=== PATIENT | female | born 2000 | race Caucasian/White ===

== ENCOUNTER 2018-02-13 15:04 | Outpatient (CLI) | payer OTHER ==
--- NOTE | 2018-02-14 03:47 | Diagnostic Imaging Report ---
RUCHI PALOMINO [facility] [id number] [facility]ly [facility] [address] [address] Report Submission Date: Feb 13, 2018 3:35:34 PM RUBY ON RAILS WEB DEVELOPER Patient Study Name: JANET RODRÍGUEZ Date: Feb 13, 2018 3:07:21 PM RUBY ON RA[employer] WEB DEVELOPER Modality Type: DX Gender: F Description: CHEST : 89 Institution: [facility] Physician: RUCHI PALOMINO Examination: PA and lateral chest. History: Evaluate lung hartmann. PT STATES PRODUCTIVE COUGH X 4 DAYS. PT IS NOT A SMOKER. (Hx) Comparison exam: None provided. Findings: PA and lateral views of the chest demonstrates a normal cardiac and mediastinal silhouette. No focal infiltrate. No blunting of the costophrenic margins. Osseous structures are appropriate for age. Impression: No acute pulmonary process. Electronically signed on Feb 13, 2018 3:35:34 PM RUBY ON RA[employer] WEB DEVELOPER by: Carlos BOWEN
== END 2018-02-13 15:05 ==
LOC: RAD 15:04
PROVIDERS: ATTEND Family Medicine
DX: R05 Cough (principal)
CPT/HCPCS: 71046

== ENCOUNTER 2018-05-10 03:29 | Emergency (ER) | payer OTHER ==
[2018-05-10] MEDS ORDERED: MAGNESIUM CITRATE 296 ML BOTTLE PO ONE ×2 (04:16→04:36)
--- NOTE | 2018-05-10 04:21 | ED Physician Documentation ---
Abdominal Pain - HISTORIAN Historian: patient - HPI Stated Complaint: abd pain Chief Complaint: Abdominal Pain Onset: days ago (4) Context: denies: out of country travel, bad food, recent trauma Severity: moderate Quality: pain, cramping Associated Symptoms: denies: fever, chills, nausea, vomiting Exacerbated by: nothing Relieved by: nothing Further Comments: yes (18 year old female patient present with abdominal pain and cramping for the past 4 days. Patient denies any fever or chills, denies vomiting. Took over the counter laxative with no results.) - ROS CONST: no problems GI/: constipation CVS/RESP: none EYES/ENT: none MS/SKIN/LYMPH: none NEURO/PSYCH: none - SOCIAL HX Smoking History: non-smoker - FAMILY HX Family History: none - PAST HX Past History: none Allergies/Adverse Reactions: Allergies Allergy/AdvReac Type Severity Reaction Status Date / Time No Known Drug Allergies Allergy Verified 05/10/18 04:33 - VITAL SIGNS Vital Signs: Vital Signs Temp Pulse Resp BP Pulse Ox 98.2 F 100 H 20 149/75 98 05/10/18 03:31 05/10/18 03:31 05/10/18 03:31 05/10/18 03:31 05/10/18 03:31 - REVIEWED ASSESSMENTS Nursing Assessment Reviewed: Yes Vitals Reviewed: Yes ED Results Lab/Radiology - Radiology Radiology Impressions: Abdomen complete History: 2 days of abdominal pain and constipation Findings: The bowel gas pattern is normal without obstruction, constipation, or free air. No abnormal calcifications are observed. Electronically signed on May 10, 2018 4:15:53 AM AUDIO VISUAL PROJECT MANAGER by: Ascencion Kerr - Orders Orders: ED Orders Category Date Time Status ABD COMPLETE [RAD] Stat Exams 05/10/18 Taken UA W/MICRO IF INDICATED Routine Lab 05/10/18 03:44 Ordered Magnesium Citrate [Citrate of Magnesia] Med 05/10/18 04:16 Discontinued 150 ml PO NOW ONE Abdominal Pain Physical Exam - Physical Exam General Appearance: mild distress RESPIRATORY: no resp distress, chest non-tender, breath sounds normal CVS: reg rate & rhythm, heart sounds normal, equal pulses, no murmur, no gallop, PMI nml, no JVD, no friction rub, 24 ABDOMEN: soft, no organomegaly, normal bowel sounds, no abdominal bruit, no distension SKIN: normal color, warm/dry, NR, INT, PAL, DR EXTREMITIES: non-tender NEURO: oriented X3, CN's nml as tested, motor nml, sensation nml Vital Signs: Vital Signs Temp Pulse Resp BP Pulse Ox 98.2 F 100 H 20 149/75 98 05/10/18 03:31 05/10/18 03:31 05/10/18 03:31 05/10/18 03:31 05/10/18 03:31 Discharge Clincal Impression: Abdominal cramping Abdominal pain Qualifiers: Abdominal location: generalized Qualified Code(s): R10.84 - Generalized abdominal pain Referrals: Sofía Layton MD [Primary Care Provider] - 2 Days Additional Instructions: Constipation Increase the amount ofhigh-fiber foodsin your diet. Choose more whole grain breads, cereals and rice. Select more raw fruits and vegetables -- eat the peel, if appropriate. Drink six to eight glasses of water each day. Limit highly refined and processed foods. Over the counter Laxative as needed Gas-ex, simethicone, or beano as needed per package directions for gas pain Return to the emergency department or call your doctor, if you are having severe abdominal pain, fever >101.0, or if there is blood in the vomit or diarrhea, or you cannot keep down liquids or solid food. Condition: Stable Disposition: 01 HOME, SELF-CARE Decision to Admit: NO Decision Time: 04:18
--- NOTE | 2018-05-10 04:31 | Diagnostic Imaging Report ---
CHRISTIANO HILL (APPLIANCE WORKER) - ER [facility] [address] [address] Report Submission Date: May 10, 2018 4:15:53 AM TOOL SALVAGE WORKER Patient Study Name: JANET RODRÍGUEZ Date: May 10, 2018 3:41:22 AM TOOL SALVAGE WORKER Modality Type: DX Gender: F Description: ABD COMPLETE : 89 Institution: [facility] Physician: CHRISTIANO HILL (APPLIANCE WORKER) - ER Abdomen complete History: 2 days of abdominal pain and constipation Findings: The bowel gas pattern is normal without obstruction, constipation, or free air. No abnormal calcifications are observed. Electronically signed on May 10, 2018 4:15:53 AM TOOL SALVAGE WORKER by: Ascencion BOWEN
[2018-05-10] MEDS ORDERED: ONDANSETRON HCL 4 MG TAB.RAPDIS ONE (04:45)
[2018-05-10] MEDS ORDERED: ONDANSETRON HCL 4 MG TAB.RAPDIS PO ONE (04:45)
[2018-05-10 04:49] VITALS: BP 141/83
[2018-05-10 13:17] LABS: APPEARANCE,URINE CLEAR (CLEAR); COLOR,URINE YELLOW (YELLOW); OCCULT BLOOD,URINE 1+ (NEGATIVE)
[2018-05-10 13:18] LABS: UROBILINOGEN URINE 0.2 Eu (0.2-1.0)
== END 2018-05-10 04:48 | disposition home or self-care (01) ==
LOC: ED 03:29
DX: R10.84 Generalized abdominal pain (principal)
CPT/HCPCS: 74019; 81002; 99283; 99284; A9270

== ENCOUNTER 2018-05-16 10:18 | Outpatient (CLI) | payer OTHER | END 2018-05-16 10:30 | LOC: LAB 10:18 | PROVIDERS: ATTEND Family Medicine | DX: K59.00 Constipation, unspecified (principal) | CPT/HCPCS: 36415; 84439; 84443; 84481 ==